=== PATIENT | female | born 1990 | race Caucasian/White ===

== ENCOUNTER → 2018-07-04 | Observation (INO) ==
[2018-07-03 23:13] LABS: Bilirubin,Urine Negative (Negative); Blood,Urine Negative (Negative); Clarity,Urine Clear (Clear); Color,Urine Yellow (Yellow); Glucose,Urine (UA) Normal (Normal); Ketones,Urine Negative (Negative); Leukocyte Esterase,Urine Negative (Negative); Nitrite,Urine Negative (Negative); Protein,Urine Negative (Neg-Trace); Specific Gravity,Urine < 1.005 (1.010-1.025); Urobilinogen,Urine Normal (Normal)
[2018-07-03 23:21] LABS: Amphetamine Screen,Urine Negative ng/mL (Cutoff=1000); Barbiturate Screen,Urine Negative ng/mL (Cutoff=200); Benzodiazepines Screen,Urine Negative ng/mL (Cutoff=200); Cannabinoid Screen,Urine Negative ng/mL (Cutoff = 50); Cocaine Screen,Urine Negative ng/mL (Cutoff= 300); Opiate Screen,Urine Negative ng/mL (Cutoff=300); Phencyclidine Screen,Urine Negative ng/mL (Cutoff=25)
--- NOTE | 2018-07-03 23:33 | OB/GYN Progress Note ---
Date of Encounter: 07/03/18 Time of Encounter: 23:31 - Assessment and Plan (1) 27 weeks gestation of Current Visit: Yes Status: Acute Urine normal NST appropriate for gestation with audible movement Discharge home with labor precaution and what to expect for gestation in relation to movement Follow up in the office with routine care and PRN. (2) Decreased movement during in second trimester, antepartum Current Visit: Yes Status: Acute Qualifiers: Fetus number: single or unspecified fetus Qualified Code(s): O36.8120 - Decreased movements, second trimester, not applicable or unspecified Subjective - Subjective Principal diagnosis: Decreased movement Interval history: Ms Wallace is a at 27 weeks 2 days gestation that presents to triage for decreased movement. She denies headache, visual disturbances, epigastric pain, leaking of fluid, vaginal discharge, and cramping/contractions. This has been effected by obesity, a previous , anemia, and a suicide attempt. She is seen by Dr Doan for her care. Antepartum ROS: no movement normal Objective - Exam FHR comments: FHTs 145-155 moderate variablity. No contractions per toco or palpation Abdomen: Present: soft, gravid. Absent: tenderness Uterus: Present: normal. Absent: firm - Labs Labs: Abnormal lab results Ur Specific [place] < 1.005 (1.010-1.025) L 07/03/18 22:18
== END | disposition home or self-care (01) ==
LOC: 1NENULAB
PROVIDERS: ADMIT Advanced Practice Midwife; ATTEND Advanced Practice Midwife

== ENCOUNTER → 2018-07-19 15:09 | Observation (INO) ==
[2018-07-19 13:40] LABS: Bilirubin,Urine Small (Negative); Blood,Urine Negative (Negative); Clarity,Urine Cloudy (Clear); Color,Urine Dark Yellow (Yellow); Glucose,Urine (UA) Normal (Normal); Ketones,Urine Negative (Negative); Leukocyte Esterase,Urine Small (Negative); Nitrite,Urine Negative (Negative); PH,Urine 6.5 pH Units (5.0-8.0); Protein,Urine 30 mg/dL (Neg-Trace); Specific Gravity,Urine 1.017 (1.010-1.025); Urobilinogen,Urine Normal (Normal)
[2018-07-19 13:42] LABS: Bacteria,Urine Few per hpf (None-Few); RBC,Urine 0-3 per hpf (0-3); Squamous Epithelial Cell,Urine Many per lpf (None-Few)
[2018-07-19 13:45] LABS: Amphetamine Screen,Urine Negative ng/mL (Cutoff=1000); Barbiturate Screen,Urine Negative ng/mL (Cutoff=200); Benzodiazepines Screen,Urine Negative ng/mL (Cutoff=200); Cannabinoid Screen,Urine Negative ng/mL (Cutoff = 50); Cocaine Screen,Urine Negative ng/mL (Cutoff= 300); Opiate Screen,Urine Negative ng/mL (Cutoff=300); Phencyclidine Screen,Urine Negative ng/mL (Cutoff=25)
[2018-07-19 14:00] LABS: Mucus,Urine Few (Few)
--- NOTE | 2018-07-19 15:09 | Discharge Summary ---
Date of Encounter: 07/19/18 Time of Encounter: 15:07 - Discharge Diagnosis (1) 29 weeks gestation of Priority: Primary Status: Acute Comments: Admitted for observation due to lightheadedness and pelvic pressure (2) NST (non-stress test) reactive Priority: Secondary Status: Acute Comments: Normal baseline +10 x 10 accelerations, appropriate for gestational age (3) Lightheaded Priority: Secondary Status: Acute Comments: Blood pressures ranging 80s and 90s over 50s while here. Patient states this has been normal for her recently and has been experiencing lightheadedness for approximately 5 weeks. Her OB care provider is aware of this. Patient states she has been sent home on more than one occasion from work due to coming close to passing out. - Discharge Medications Prescriptions: No Action Terconazole [Terazol 3] 20 gm VG HS #3 cream.appl Home Medications: Terconazole [Terazol 3] 20 gm VG HS #3 cream.appl 07/03/18 [Rx] Allergies/Adverse Reactions: Allergy/AdvReac Type Severity Reaction Status Date / Time No Known Allergies Allergy Verified 07/04/18 00:06 Data Procedures and tests throughout hospitalization: Laboratory Tests 07/19/18 07/19/18 12:55 13:10 Urine Color Dark Yellow Urine Clarity Cloudy A Urine pH 6.5 Ur Specific [place] 1.017 Urine Protein 30 H Urine Glucose (UA) Normal Urine Ketones Negative Urine Blood Negative Urine Nitrite Negative Urine Bilirubin Small H Urine Urobilinogen Normal Ur Leukocyte Esterase Small H Urine Microscopic RBC 0-3 Urine Microscopic WBC 5-15 H Ur Squamous Epith Cells Many H Urine Bacteria Few Hyaline Casts Test Not Performed Urine Mucus Few Urine Yeast Test Not Performed Urine Opiates Screen Negative Ur Barbiturates Screen Negative Ur Phencyclidine Scrn Negative Ur Amphetamines Screen Negative U Benzodiazepines Scrn Negative Urine Cocaine Screen Negative U Marijuana (THC) Screen Negative Ur Drug Screen Interp See Below Labs on day of discharge: Labs from last 24 hours 07/19/18 07/19/18 13:10 12:55 Urine Color Dark Yellow Urine Clarity Cloudy A Urine pH 6.5 Ur Specific [place] 1.017 Urine Protein 30 H Urine Glucose (UA) Normal Urine Ketones Negative Urine Blood Negative Urine Nitrite Negative Urine Bilirubin Small H Urine Urobilinogen Normal Ur Leukocyte Esterase Small H Urine Microscopic RBC 0-3 Urine Microscopic WBC 5-15 H Ur Squamous Epith Cells Many H Urine Bacteria Few Hyaline Casts Test Not Performed Urine Mucus Few Urine Yeast Test Not Performed Urine Opiates Screen Negative Ur Barbiturates Screen Negative Ur Phencyclidine Scrn Negative Ur Amphetamines Screen Negative U Benzodiazepines Scrn Negative Urine Cocaine Screen Negative U Marijuana (THC) Screen Negative Ur Drug Screen Interp See Below Date of admission: 07/19/18 12:18 Primary care physician: Shahram Guerra DO Discharging clinician: Sienna Mcneill Anticipated date of discharge: 07/19/18 - Patient Status Disposition: Home, Self-Care Condition: Good Functional capacity at discharge: independent ambulation Overall status at discharge: patient is progressing back to baseline - Discharge Instructions Follow Up With: Shahram Guerra DO [Primary Care Provider] - Additional Instructions: LABOR AND DELIVERY DISCHARGE INSTRUCTIONS Signs and Symptoms to be Reported to your Doctor Immediately: * Sudden gush, continuous or intermittent lead of fluid from vagina (note the time of gush and color of fluid) * Onset of bright red vaginal bleeding with or without pain (if you had a vaginal exam during this visit you may notice some dark red spotting. This is normal.) * Lower abdominal cramping or backache that is premenstrual-like feeling. * More than 6 contractions in one hour. * Burning during urination, having to urinate more frequently or pain in your mid-back. * A change in the baby's activity. This could be an increase or decrease in activity. * Severe headache which does not go away with tylenol. * Sudden swelling in the face, hands, arms and/or legs. * Upper abdominal pain - sometimes associated with heartburn or nausea and is not relieved by Maalox, Mylanta or Tums. * Dizziness or blurred vision or visual disturbances (seeing stars/lights). * Kick Counts One hour after a meal, lay down on one side in a quiet place. Count the number of dary the baby moves during an hour. If less than 6 movements, notify your physician. Diet: *Force fluids - 8-10 tall glasses of fluid per day. May include popsicles and jello. *Limit caffeine - this includes chocolate, coffee, tea, any soft drink containing such as all cammie, Ciro Yellow and Mountain Dew - Diet and Activity Activity: resume usual activities as tolerated Diet: regular diet Hospital Course [facility] Hospital course: Patient arrived today with complaints of lightheadedness and some pelvic pain. She was scheduled to have an appointment with Dr. Doan this afternoon but after calling with this complaint she was instructed to come to labor and delivery for evaluation. On arrival she does endorse positive movement, denies vaginal bleeding and leakage and contractions. monitor showed a reactive NST for gestational age and occasional uterine activity. Due to rare contractions SVE was completed and found to be closed thick and high. Blood pressures while the patient was here ranged from 80s and 90s over 50s. She states she has been having this lightheadedness for over a month and her OB provider is aware. OB issues were ruled out in this visit. Patient had a 28 week labs drawn 1 week ago and her hemoglobin at that time was 10.4 and she was started on iron. Patient was instructed that she could be evaluated in the emergency room for complaints of lightheadedness if she chooses. She does have an appointment with Dr. Doan on 07/28/2018 for her routine visit and is to call if she has any concerns prior to that visit. Time Attestation: Total time spent providing and/or coordinating discharge services: Time Spent: Less than 30 minutes Exam - Constitutional General appearance IM: A&O X 3, pleasant, no acute distress, answers questions appropriately - Respiratory Respiratory exam: Present: CTAB - Cardiovascular Cardiovascular exam IM: Present: RRR, +S1, +S2 - GI/Abdominal GI/Abdominal exam IM: normal bowel sounds, soft - Rectal Rectal exam: deferred - External exam: normal external exam - Extremities Exam Extremities exam IM: Present: full ROM, normal capillary refill, normal inspection - Neurological Exam Neurological exam: alert, normal gait, oriented X3 - VTE Reasons for not Prescribing Prophylaxis: Treatment not Indicated - Low risk for VTE
== END | disposition home or self-care (01) ==
LOC: 1NENULAB
PROVIDERS: ADMIT Registered Nurse; ATTEND Registered Nurse

== ENCOUNTER → 2018-07-22 01:13 | Observation (INO) ==
[2018-07-21 23:22] LABS: Bilirubin,Urine Negative (Negative); Blood,Urine Negative (Negative); Clarity,Urine Cloudy (Clear); Color,Urine Yellow (Yellow); Glucose,Urine (UA) Normal (Normal); Ketones,Urine Negative (Negative); Leukocyte Esterase,Urine Negative (Negative); Nitrite,Urine Negative (Negative); PH,Urine 6.5 pH Units (5.0-8.0); Protein,Urine Trace mg/dL (Neg-Trace); Specific Gravity,Urine 1.018 (1.010-1.025); Urobilinogen,Urine Normal (Normal)
[2018-07-21 23:25] LABS: Bacteria,Urine Few per hpf (None-Few); Hyaline Casts,Urine None Seen per lpf (None-Few); RBC,Urine 0-3 per hpf (0-3); Squamous Epithelial Cell,Urine Many per lpf (None-Few)
[2018-07-21 23:33] LABS: Amphetamine Screen,Urine Negative ng/mL (Cutoff=1000); Barbiturate Screen,Urine Negative ng/mL (Cutoff=200); Benzodiazepines Screen,Urine Negative ng/mL (Cutoff=200); Cannabinoid Screen,Urine Negative ng/mL (Cutoff = 50); Cocaine Screen,Urine Negative ng/mL (Cutoff= 300); Opiate Screen,Urine Negative ng/mL (Cutoff=300); Phencyclidine Screen,Urine Negative ng/mL (Cutoff=25)
[2018-07-21 23:46] LABS: Calcium Oxalate Crystals,Urine Present
--- NOTE | 2018-07-22 00:12 | OB/GYN Progress Note ---
Date of Encounter: 07/22/18 Time of Encounter: 00:08 - Assessment and Plan (1) 30 weeks gestation of Current Visit: Yes Status: Acute (2) Abdominal pain affecting Current Visit: Yes Status: Acute Pt reports sharp, constant pain throughout upper and middle abdomen bilaterally. No ill contacts. Pain started after taking iron supplement. Suspect pain is secondary to GI upset from iron. She reports pain has improved since arriving to triage. She reports nausea has resolved. No obstetric complaints. Will get CBC, hepatic panel, amylase and lipase. GI cocktail now. If labs WNL and sx continue to improve, will discharge home with precautions. (3) NST (non-stress test) reactive Current Visit: No Status: Acute Subjective - Subjective Interval history: 27 year-old presenting at 30 weeks gestation with c/o diffuse abdominal pain. She reports associated nausea. Her symptoms started at 9pm when she took her iron supplement. She reports her pain is sharp, constant, and severe in her upper and middle abdomen. She denies any diarrhea or constipation. No urinary sx. No cramping, leaking or bleeding. Good FM. She does have a significant history of previous delivery, suicide attempt by OD approx 6 weeks ago, marijuana use, iron deficiency anemia and obesity. Antepartum ROS: movement normal, no loss of fluid, no vaginal bleeding, no contractions Objective - Vital Signs Vital Signs: Intake and Output 07/21/18 07/21/18 07/22/18 15:59 23:59 07:59 Other: Weight 75.9 kg - Exam FHR: category 1 FHR comments: 145 BPM, reactive NST Auscultation: bilateral: normal Abdomen: Present: soft, gravid. Absent: tenderness Uterus: Present: normal. Absent: tenderness Cervical dilation: closed/thick/high Comments: no CVAT - Labs Labs: Abnormal lab results Cloudy (Clear) A 07/21/18 23:10 5-15 per hpf (0-3) H 07/21/18 23:10 Ur Squamous Epith Cells Many per lpf (None-Few) H 07/21/18 23:10
[2018-07-22 00:29] LABS: Basophils % 0.2 %; Eosinophils # 0.1 K/mcL (0.0-0.6); Eosinophils % 0.6 %; Hematocrit 31.3 % (35.3-44.9); Hemoglobin 10.6 g/dL (11.5-15.4); Immature Granulocytes % 0.4 % (0-4); Lymphocytes # 1.6 K/mcL (0.6-4.6); Lymphocytes % 13.4 %; Mean Corpuscular HGB Conc 33.9 g/dL (31.6-35.5); Mean Corpuscular Hemoglobin 29.7 pg (28.0-33.3); Mean Corpuscular Volume 87.7 fL (83.0-100.0); Mean Platelet Volume 9.7 fL (9.4-12.4); Monocytes # 0.4 K/mcL (0.0-1.3); Monocytes % 3.5 %; Neutrophils # 9.6 K/mcL (1.6-8.9); Platelet Count 226 K/mcL (140-400); Red Blood Count 3.57 M/mcL (3.82-4.97); Red Cell Distribution Width 14.1 % (11.5-14.5); Segmented Neutrophils % 81.9 %
[2018-07-22 00:45] LABS: Alanine Aminotransferase 10 Units/L (7-52); Albumin 3.3 g/dL (3.5-5.7); Albumin/Globulin Ratio 1.1 (1.1-2.2); Alkaline Phosphatase 67 Units/L (34-104); Amylase 62 Units/L (29-103); Aspartate Amino Transferase 16 Units/L (13-39); BUN/Creatinine Ratio 13 (6-26); Bilirubin,Direct 0.2 mg/dL (0.0-0.2); Bilirubin,Indirect 0.4 mg/dL (0.0-1.2); Bilirubin,Total 0.6 mg/dL (0.3-1.0); Blood Urea Nitrogen 9 mg/dL (6-20); Calcium 8.8 mg/dL (8.6-10.3); Carbon Dioxide 26 mEq/L (23-29); Chloride 102 mEq/L (98-107); Globulin 2.9 g/dL (2.4-3.5); Glucose 88 mg/dL (70-105); Lipase 35 Units/L (11-82); Osmolality,Calculated 282 (280-300); Sodium 137 mEq/L (136-145); Total Protein 6.2 g/dL (6.4-8.9); eGFR For Non-African Americans > 60 (> 60)
[~2018-07-22 01:13] MED LIST: GI Cocktail 40 ML EACH PO ONE
== END | disposition home or self-care (01) ==
LOC: 1NENULAB
PROVIDERS: ADMIT Registered Nurse; ATTEND Registered Nurse

== ENCOUNTER 2018-09-26 05:09 | Inpatient (IN) ==
[~2018-09-26 05:09] MED LIST changes: +CeFAZolin Premix DUPLEX 2,000 MG/50 ML BAG IVPB ONE; +D5% in Lactated Ringers 1,000 ML IVC SCH; +Famotidine 20 MG/2 ML VIAL IVP ONE; -GI Cocktail 40 ML EACH PO ONE; +Metoclopramide 10 MG/2 ML VIAL IVP ONE; +Ringers Solution, Lactated 1,000 ML IVC ONE
--- NOTE | 2018-09-26 05:21 | OB/GYN History & Physical ---
Date of Encounter: 09/26/18 Time of Encounter: 05:13 Assessment and Plan (1) 39 weeks gestation of Current visit: Yes Status: Acute Continuous EFM and toco prior to section (2) Depression affecting Current visit: Yes Status: Acute Continue 40 mg of Prozac (3) Iron deficiency anemia Current visit: No Status: Acute We will continue oral iron therapy, possible iron infusion Qualifiers: Qualified Code(s): D50.8 - Other iron deficiency anemias (4) Previous section Current visit: Yes Status: Acute Plan for repeat section as patient is in labor. 2 g of Ancef and 500 mg of azithromycin ordered for preoperative antibiotics. (5) Sterilization Current visit: Yes Status: Acute We will perform bilateral tubal ligation during repeat section. Tubal consent signed on 07/12/2018 History of Present Illness Chief complaint: Ctxs HPI: Ms. Wallace is a 28 year old female @ 39.3wga. She presents to labor and delivery complaining of contractions and a single gush of blood at 9 PM last night. She has made change from 1 cm to 2 cm and continues to be uncomfortable with her regular contractions approximately every 2-3 minutes despite 1 L IV fluid bolus. This is complicated by a suicide attempt in May and anemia status post 1 iron infusion. +FM. Denies VB, LOF, abnml vag discharge, ctxs/cramping, dysuria or other complaints. Past Med Surg Social Fam HX - Past Medical History Medical history: no medical history Additional medical history: SEVERE DEPRESSION Psychiatric history: depression, prior suicide attempt - Past Surgical History Surgical History: - Social History Smoking Status: Never smoker Smokeless Tobacco Status: No Alcohol use: none Drug use: none - Family History Mother Living Status: Still Living Hx Family Cardiac Disorders: No Hx Family Respiratory Disorders: No Hx Family Cancer: No Hx Family GI Disorders: No Hx Family Endocrine Disorder: No Hx Family Neuromuscular Disorders: No Hx Family Neurologic Disorders: No Hx Family HEENT Disorders: No Hx Family Autoimmune Disorders: No Obstetrical History - Pregnancies : 2 Para: 1 Term: 1 : 0 Ab's: 0 Livin - History/Complications History/Complications: complicated by suicide attempts and iron deficiency anemia Medications and Allergies Prozac 40 mg PO DAILY 07/21/18 [History] Cetirizine HCl [Zyrtec] 10 mg PO DAILY 08/16/18 [History] Allergy/AdvReac Type Severity Reaction Status Date / Time No Known Allergies Allergy Verified 08/25/18 13:08 Review of System OB All systems PM: reviewed and no additional remarkable complaints except as stated (All other systems are negative outside of the history of present illness.) Exam - Constitutional Constitutional: well developed, well nourished, no acute distress, average body habitus - HEENT HEENT: Normocephaly, Mucus Membranes Moist - Neck Neck exam: supple - Abdomen Abdomen: Present: gravid, non tender - Cervix Dilation: 2 Results All other labs normal. - VTE Reasons for not Prescribing Prophylaxis: Treatment not Indicated - Low risk for VTE
[2018-09-26 05:34] LABS: Basophils % 0.1 %; Hematocrit 34.9 % (35.3-44.9); Hemoglobin 11.7 g/dL (11.5-15.4); Immature Granulocytes % 0.3 % (0-4); Lymphocytes # 1.6 K/mcL (0.6-4.6); Lymphocytes % 13.3 %; Mean Corpuscular HGB Conc 33.5 g/dL (31.6-35.5); Mean Corpuscular Hemoglobin 29.6 pg (28.0-33.3); Mean Corpuscular Volume 88.4 fL (83.0-100.0); Mean Platelet Volume 11.1 fL (9.4-12.4); Monocytes # 0.5 K/mcL (0.0-1.3); Monocytes % 3.9 %; Neutrophils # 9.9 K/mcL (1.6-8.9); Platelet Count 199 K/mcL (140-400); Red Blood Count 3.95 M/mcL (3.82-4.97); Red Cell Distribution Width 14.9 % (11.5-14.5); Segmented Neutrophils % 82.4 %; White Blood Count 12.1 K/mcL (4.3-11.1)
[2018-09-26] MEDS ORDERED: *HR* Morphine Sulfate/PF 10 MG/10 ML AMPUL ONE (05:38)
[2018-09-26] MEDS ORDERED: *HR* FentaNYL (PF) 100 MCG/2 ML VIAL ONE (05:38)
[2018-09-26] MEDS ORDERED: *HR* Oxytocin 10 UNIT/ML VIAL IM ONE ×2 (05:39→06:38)
[2018-09-26] MEDS ORDERED: Azithromycin 500 MG in D5% in Water 250 ML IVPB ONE (05:45)
--- NOTE | 2018-09-26 05:56 | Anesthesia Evaluation PreOp ---
Date of Encounter: 09/26/18 Time of Encounter: 05:54 - Past History Planned Operation: Repeat Cardiac History: Other (hypotension with this ) Pulmonary History: Denies Any Significant HX CLINICAL DOCUMENTATION CLERK History: Denies Any Significant HX Other Medical History: Other (severe depression; suicide attempt 05/2018) Anesthesia History: No Prior Anesthetic Complications (JOB x 1--no issues; never had GA; denies family h/o GA complications) : Yes Alcohol Use: none Drug use: none Medications and Allergies Prozac 40 mg PO DAILY 07/21/18 [History] Cetirizine HCl [Zyrtec] 10 mg PO DAILY 08/16/18 [History] Allergy/AdvReac Type Severity Reaction Status Date / Time No Known Allergies Allergy Verified 08/25/18 13:08 - Meds/Allergy Pre-op Review Medications Reviewed: Yes Allergies Reviewed: Yes Beta Blockers on Current Med List: No Anesthesia Results - Labs 09/26/18 05:15 Anesthesia Exam 107/74, HR 70 O2 Sat Height 1.42 m Weight 76.8 kg NPO (# of Hours): >8hrs Pain Scale: 10 Pain Scale Used: Anna-Nichols (Faces) - HEENT Pupil (Motor): Pupils equal Mallampati: II Teeth: Normal Oral Opening: Greater than 3 - CLINICAL DOCUMENTATION CLERK LOC: Oriented CLINICAL DOCUMENTATION CLERK Motor: Normal RUE, Normal LUE, Normal RLE, Normal LLE, Normal Face CLINICAL DOCUMENTATION CLERK Sensory: Normal: RUE, LUE, RLE, LLE, Face - Cardiac Rhythm: Regular Murmur: None - Pulmonary Breath Sounds: bilateral Clear Respiratory Effort: Symmetrical Anesthesia Assess/Plan ASA Score: 2 Level of consciousness: Cooperative, Oriented, Restless Anesthetic Plan: Spinal Autologous Blood: No Monitoring Plan: Standard Monitors Recovery Plan: PACU
[2018-09-26 05:57] LABS: Amphetamine Screen,Urine Negative ng/mL (Cutoff=1000); Barbiturate Screen,Urine Negative ng/mL (Cutoff=200); Benzodiazepines Screen,Urine Negative ng/mL (Cutoff=200); Cannabinoid Screen,Urine Negative ng/mL (Cutoff = 50); Cocaine Screen,Urine Negative ng/mL (Cutoff= 300); Opiate Screen,Urine Negative ng/mL (Cutoff=300); Phencyclidine Screen,Urine Negative ng/mL (Cutoff=25)
--- NOTE | 2018-09-26 06:35 | Anesthesia Procedures ---
Date of Encounter: 09/26/18 Time of Encounter: 06:08 Procedures: Anesthesia - Epidural/Spinal Patient ID/Chart reviewed: Yes Patient examined: Yes OB Eval: Gestational age: 39 weeks 3 days OB Eval: : 2 OB Eval: Hx Para: 1 OB Eval: Contractions: Non-stressed pattern Consent Obtained: Yes Supplemental Oxygen: None/Room Air Site Prep: Aseptic Technique, Sterile prep and drape, 0.5% Chlorhexidine/Alcohol Patient position: upright Local Anesthetic: Lidocaine 1% Amount of Local Anesthetic used: 3 Interspace Used: L3-L4 Blood: No CSF: Yes Paresthesia: No Spinal Needle Gauge: 25 (3.5" pencan needle) Spinal Dose: see anesthesia record Procedure: successful on 1st attempt; patient tolerated procedure well Vitals + FHT's: see anesthesia record
[2018-09-26] MEDS ORDERED: Ringers Solution, Lactated 1,000 ML ONE ×2 (06:38→10:46)
[2018-09-26] MEDS ORDERED: Ketorolac 30 MG/ML VIAL IVP STA (08:09)
--- NOTE | 2018-09-26 08:31 | OB/GYN Procedure Note ---
Section - Date of procedure: 09/26/18 Preop diagnosis: desires repeat (Declined TOLAC), desires sterilization Post-op diagnosis: same Procedure: section, repeat low transverse, other (Bilateral salpingectomy) Surgeon: Sally Hernandez Blood Loss: 800 Was there an painter assistant present: Yes Production Estimator: Angela Bush Anesthesiologist: Brian Adams Cotton Wringer: Brandyn Avery Anesthesia Type: Spinal section complications: none Disposition: L&D Recovery Room Specimens: Placenta, Cord segment, Cord blood, Cord gasses, Right tube segment (Right fallopian tube, not segment), Left tube segment (Left fallopian tube, not segment) - (s) Infant A Delivery Date: 09/26/18 Infant Delivery Time: 06:25 Presentation: vertex Gender: Male Viability: Viable Pounds: 7 Ounces: 10 Gram Weight: 3.465 kg at 1 minute: 8 at 5 minutes: 9 Shoulder Dystocia: not encountered Specimens collected: cord blood, venous cord gases, arterial cord gases Placenta: spontaneous Cord: nuchal cord (x 2), nuchal reduced (After delivery of head) - Narrative Narrative: Operation Performed Repeat Low Transverse Section with bilateral salpingectomy Indication for Surgery 28yo at 39.3 wga presented to labor and delivery complaining of c ontractions and passing a large quantity of blood times once at 9 PM, vaginal bleeding now resolved. She was esvin every 2-3 minutes and made cervical change from 1 cm to 2 cm. She was originally scheduled for a repeat section and bilateral partial salpingectomy at 40 weeks and 0 days. She was in labor, declined TOLAC and desired permanent sterilization the decision was made to proceed with a repeat section. The patient was informed of the risks and benefits of a section with bilateral salpingectomy. Risks included but were not limited to bleeding, infection, injury to the presenting part of the fetus, injury to the bladder, bowel, ureters and the surrounding neurovasular bundles. The patient expressed understanding of the risks involved. All questions were answered and the patient consented to the procedure. Preoperative Diagnosis 1. IUP @ 39.3 wga 2. Previous section x1, declined TOLAC and in labor 3. Undesired fertility Postoperative Diagnosis Same Surgeon Sally Brar D.O. Production Estimator(s) Angela Bush Anesthesia Spinal with Duramorph Estimated Blood Loss 800 mL Urine Output Adequate amount of clear yellow urine IV Fluids 2400 mL crystalloid Specimen(s) Placenta, Cord gasses, Cord blood Findings Live male , weighing 7 pounds and 10 ounces, with APGARS of 8/9. Normal appearing uterus, tubes and ovaries bilaterally. Complications None Technique The patient was taken to the operating room where a timeout was performed to confirm correct patient and correct procedure. Preoperative antibiotics were administered and spinal anesthesia was found to be adequate. As she laid supine, following the spinal, the previously observed heart rate in the 130s to 140s dropped into the 80s to 90s. The decision was made to proceed with a Betadine abdominal prep instead of a ChloraPrep abdominal prep. This was followed by draping in the usual sterile fashion for a section with a leftward tilt of the hips. A Pfannenstiel skin incision was made with a scalpel. Dissection to the fascia was carried out using blunt and sharp dissection, followed by the Bovie electrocautery for hemostasis. The fascia was incised with a scalpel and the incision was extended laterally using curved Mar scissors. Last clamps were used to tent up the superior edge of the fascia and the underlying rectus muscles were dissected off using blunt and sharp dissection. Attention was then turned to the inferior fascial edge and dissection carried out in a similar manner. The rectus muscles were then in the midline and the peritoneum was entered using blunt and sharp dissection. The peritoneum was grasped with hemostats at the superior aspect, care was taken to avoid the bladder, and incised with Metzenbaum scissors. The peritoneal incision was extended using light traction. A bladder blade was inserted. The lower uterine segment was incised with a scalpel in transverse fashion. The hysterotomy was extended laterally with blunt traction in cephalad and caudad directions. A large amount of meconium-stained fluid was present upon amniotomy. The fetus was in vertex presentation. The surgeon's hand was placed under the infant's head and the infant delivered through the hysterotomy with the assistance of fundal pressure. A nuchal cord 2 was reduced, after delivery of the head, followed by the delivery of the 's body. The cord was clamped 2 and cut. The infant was safely transferred to the warmer for further care by the domain architect. Cord blood and gases were obtained for routine testing. The placenta, with three-vessel cord, was expressed intact. The uterus was removed from the abdomen and wrapped in a wet blue towel for repair and bilateral salpingectomy. The uterus was wiped clean of clots and debris before closing the hysterotomy with a running locked 0 Vicryl suture. A non-hemostatic area in the midline of the hysterotomy was reinforced with one [id number] suture. Excellent hemostasis obtained. Attention was then turned to the right adnexa in preparation for salpingectomy. Starting at the fimbriated end, and close to the fallopian tube, the right mesosalpinx was grasped with a hemostat, coagulated with the Bovie and cut with Metzenbaum scissors in a repetitive manner until the cornua was reached. At the cornua, the right fallopian tube was fully cauterized, transected and the right tube removed in its entirety. Hemostasis was obtained on the right side before proceeding, in similar fashion, to the left side to remove the left fallopian tube. Hemostasis was also obtained on the left side following removal of the fallopian tube. The uterus was then replaced into the abdomen and irrigation performed. A few areas along the hysterotomy repair were found to use so Ulysses was applied. Excellent hemostasis noted following application of Ulysses. The fascia was closed using Stratafix suture in a running nonlocked fashion. The subcutaneous tissue was closed with 4-0 Vicryl suture in a running nonlocked fashion. The skin was closed with a subcuticular stitch of 4-0 Vicryl. The patient tolerated the procedure well. At the end of the procedure, all needle sponge and instrument counts were noted to be correct 2. The patient tolerated the procedure well and was transferred to the recovery room in stable condition.
[2018-09-26] MEDS ORDERED: Oxytocin 20 units/ LR 1000 mL 20 UNIT/1,000 ML BAG IVC ONE (09:15)
[2018-09-26] MEDS ORDERED: Ringers Solution, Lactated 500 ML IVC ONE (09:34)
[2018-09-26] MEDS ORDERED: Oxytocin 20 units/ LR 1000 mL 20 UNIT/1,000 ML BAG IVC SCH (10:40)
[2018-09-26] MEDS ORDERED: Measles/Mumps/Rubella Vacc 0.5 ML VIAL SQ ONE (10:40)
[2018-09-26] MEDS ORDERED: Rho Immune Globulin 1,500 UNIT SYRINGE IM ONE (10:40)
[2018-09-26] MEDS ORDERED: Ondansetron 4 MG/2 ML VIAL IVP PRN (10:40)
[2018-09-26] MEDS ORDERED: Metoclopramide 10 MG/2 ML VIAL IVP PRN (10:40)
[2018-09-26] MEDS ORDERED: Sennosides 8.6 MG TABLET PO PRN (10:40)
[2018-09-26] MEDS: Ketorolac 30 MG/ML VIAL IVP SCH ×2 (15:55→20:48)
[2018-09-26] MEDS: Simethicone 80 MG TAB.CHEW PO SCH ×2 (16:00→20:52)
[2018-09-26] MEDS: Acetaminophen 325 MG TABLET PO SCH ×3 (16:01→20:47)
--- NOTE | 2018-09-26 17:33 | Anesthesia Evaluation Post Op ---
Date of Encounter: 09/26/18 Time of Encounter: 17:32 - Vital Signs Vital Signs: Vital Signs/O2 Sat, Most Current Temp Pulse Resp BP Pulse Ox 97.6 F 62 16 103/69 100 09/26/18 16:00 09/26/18 16:00 09/26/18 16:00 09/26/18 16:00 09/26/18 16:00 - Lungs Lungs: Clear Ascult./Percussion - Airway Airway: Non-obstructed - Cardiovascular Regular Rate - Mental Status Mental Status: Alert & Oriented, Answers Appropriately - Pain Pain Scale: 4 - Nausea Vomiting Nausea Vomiting: Not Present - Hydration Hydration: Tolerates oral liquids, Smith catheter - Discharge PostOp Status: Transfer Patient to floor
[2018-09-27] MEDS: Ibuprofen 600 MG TABLET PO SCH ×3 (05:13→19:39)
[2018-09-27] MEDS: Acetaminophen 325 MG TABLET PO SCH ×3 (05:13→19:41)
[2018-09-27 05:43] LABS: Basophils % 0.1 %; Eosinophils % 0.2 %; Hematocrit 29.6 % (35.3-44.9); Immature Granulocytes % 0.3 % (0-4); Lymphocytes # 1.8 K/mcL (0.6-4.6); Mean Corpuscular HGB Conc 33.1 g/dL (31.6-35.5); Mean Corpuscular Hemoglobin 29.9 pg (28.0-33.3); Mean Corpuscular Volume 90.2 fL (83.0-100.0); Mean Platelet Volume 10.7 fL (9.4-12.4); Monocytes # 0.4 K/mcL (0.0-1.3); Neutrophils # 6.5 K/mcL (1.6-8.9); Platelet Count 147 K/mcL (140-400); Red Blood Count 3.28 M/mcL (3.82-4.97); Red Cell Distribution Width 15.1 % (11.5-14.5); Segmented Neutrophils % 74.4 %; White Blood Count 8.8 K/mcL (4.3-11.1)
[2018-09-27 05:46] LABS: Hemoglobin 9.8 g/dL (11.5-15.4)
--- NOTE | 2018-09-27 09:19 | OB/GYN Progress Note ---
Date of Encounter: 09/27/18 Time of Encounter: 09:17 - Assessment and Plan (1) Status post delivery Current Visit: Yes Status: Acute Patient meeting day one milestones. Pain well-controlled with prescribed medications. Voiding without difficulty, tolerating regular diet, bleeding light. No bowel movement yet. Anticipate discharge tomorrow (2) Tubal ligation status Current Visit: Yes Status: Acute Patient had tubal ligation at time of delivery (3) Breast feeding status of mother Current Visit: Yes Status: Acute support as needed. We will provide breast pump prescription on discharge if needed (4) Acute blood loss anemia Current Visit: Yes Status: Acute Continue daily iron. Patient is asymptomatic with a hemoglobin of 9.8 Subjective - Subjective Principal diagnosis: Day one s/p with tubal Interval history: Date of procedure: 09/26/18 Preop diagnosis: desires repeat (Declined TOLAC), desires sterilization Post-op diagnosis: same Procedure: section, repeat low transverse, other (Bilateral salpingectomy) Surgeon: Sally Hernandez Blood Loss: 800 Was there an information services assistant present: Yes Industrial Maintenance Technician: Angela Bush Anesthesiologist: Brian Adams Program Schedule Clerk: Brandyn Avery Anesthesia Type: Spinal section complications: none Disposition: L&D Recovery Room Specimens: Placenta, Cord segment, Cord blood, Cord gasses, Right tube segment (Right fallopian tube, not segment), Left tube segment (Left fallopian tube, not segment) - (s) Infant A Infant Delivery Date: 09/26/18 Infant Delivery Time: 06:25 Presentation: vertex Gender: Male Viability: Viable Pounds: 7 Ounces: 10 Gram Weight: 3.465 kg at 1 minute: 8 at 5 minutes: 9 Shoulder Dystocia: not encountered Specimens collected: cord blood, venous cord gases, arterial cord gases Placenta: spontaneous Cord: nuchal cord (x 2), nuchal reduced (After delivery of head) - Narrative Narrative: Operation Performed Repeat Low Transverse Section with bilateral salpingectomy Indication for Surgery 28yo at 39.3 wga presented to labor and delivery complaining of contractions and passing a large quantity of blood times once at 9 PM, vaginal bleeding now resolved. She was esvin every 2-3 minutes and made cervical change from 1 cm to 2 cm. She was originally scheduled for a repeat section and bilateral partial salpingectomy at 40 weeks and 0 days. She was in labor, declined TOLAC and desired permanent sterilization the decision was made to proceed with a repeat section. The patient was informed of the risks and benefits of a section with bilateral salpingectomy. Risks included but were not limited to bleeding, infection, injury to the presenting part of the fetus, injury to the bladder, bowel, ureters and the surrounding neurovasular bundles. The patient expressed understanding of the risks involved. All questions were answered and the patient consented to the procedure. Preoperative Diagnosis 1. IUP @ 39.3 wga 2. Previous section x1, declined TOLAC and in labor 3. Undesired fertility Postoperative Diagnosis Same Surgeon Sally Brar D.O. Industrial Maintenance Technician(s) Angela Bush Anesthesia Spinal with Duramorph Estimated Blood Loss 800 mL Urine Output Adequate amount of clear yellow urine IV Fluids 2400 mL crystalloid Specimen(s) Placenta, Cord gasses, Cord blood Findings Live male , weighing 7 pounds and 10 ounces, with APGARS of 8/9. Normal a ppearing uterus, tubes and ovaries bilaterally. Complications None Technique The patient was taken to the operating room where a timeout was performed to confirm correct patient and correct procedure. Preoperative antibiotics were administered and spinal anesthesia was found to be adequate. As she laid supine, following the spinal, the previously observed heart rate in the 130s to 140s dropped into the 80s to 90s. The decision was made to proceed with a Betadine abdominal prep instead of a ChloraPrep abdominal prep. This was followed by draping in the usual sterile fashion for a section with a leftward tilt of the hips. A Pfannenstiel skin incision was made with a scalpel. Dissection to the fascia was carried out using blunt and sharp dissection, followed by the Bovie electrocautery for hemostasis. The fascia was incised with a scalpel and the incision was extended laterally using curved Mar scissors. Last clamps were used to tent up the superior edge of the fascia and the underlying rectus muscles were dissected off using blunt and sharp dissection. Attention was then turned to the inferior fascial edge and dissection carried out in a similar manner. The rectus muscles were then in the midline and the peritoneum was entered using blunt and sharp dissection. The peritoneum was grasped with hemostats at the superior aspect, care was taken to avoid the bladder, and incised with Metzenbaum scissors. The peritoneal incision was extended using light traction. A bladder blade was inserted. The lower uterine segment was incised with a scalpel in transverse fashion. The hysterotomy was extended laterally with blunt traction in cephalad and caudad directions. A large amount of meconium-stained fluid was present upon amniotomy. The fetus was in vertex presentation. The surgeon's hand was placed under the infant's head and the delivered through the hysterotomy with the assistance of fundal pressure. A nuchal cord 2 was reduced, after delivery of the head, followed by the delivery of the 's body. The cord was clamped 2 and cut. The infant was safely transferred to the warmer for further care by the salesperson men's hats. Cord blood and gases were obtained for routine testing. The placenta, with three-vessel cord, was expressed intact. The uterus was removed from the abdomen and wrapped in a wet blue towel for repair and bilateral salpingectomy. The uterus was wiped clean of clots and debris before closing the hysterotomy with a running locked 0 Vicryl suture. A non-hemostatic area in the midline of the hysterotomy was reinforced with one [id number] suture. Excellent hemostasis obtained. Attention was then turned to the right adnexa in preparation for salpingectomy. Starting at the fimbriated end, and close to the fallopian tube, the right mesosalpinx was grasped with a hemostat, coagulated with the Bovie and cut with Metzenbaum scissors in a repetitive manner until the cornua was reached. At the cornua, the right fallopian tube was fully cauterized, transected and the right tube removed in its entirety. Hemostasis was obtained on the right side before proceeding, in similar fashion, to the left side to remove the left fallopian tube. Hemostasis was also obtained on the left side following removal of the fallopian tube. The uterus was then replaced into the abdomen and irrigation performed. A few areas along the hysterotomy repair were found to use so Ulysses was applied. Excellent hemostasis noted following application of Ulysses. The fascia was closed using Stratafix suture in a running nonlocked fashion. The subcutaneous tissue was closed with 4-0 Vicryl suture in a running nonlocked fas hion. The skin was closed with a subcuticular stitch of 4-0 Vicryl. The patient tolerated the procedure well. At the end of the procedure, all needle sponge and instrument counts were noted to be correct 2. The patient tolerated the procedure well and was transferred to the recovery room in stable condition. Patient reports: appetite normal, voiding normally, pain well controlled, ambulating normally [place]: doing well, nursing well Objective - Vital Signs Latest vital signs: Vital Signs Temp Pulse Resp BP Pulse Ox 09/27/18 08:38 97.9 F 57 16 102/67 09/27/18 05:20 97.7 F 55 15 102/70 98 09/26/18 23:18 98.1 F 61 14 99/63 95 09/26/18 20:43 98.6 F 60 15 97/63 09/26/18 16:00 97.6 F 62 16 103/69 100 09/26/18 13:00 97.7 F 59 16 108/75 97 09/26/18 12:00 97.1 F L 59 18 110/74 96 09/26/18 11:37 97.7 F 56 16 106/65 97 09/26/18 10:30 98 F 56 18 110/73 96 09/26/18 10:03 98.2 F 64 14 121/85 98 Intake and Output 09/26/18 09/27/18 09/27/18 23:59 07:59 15:59 Intake Total 250 / 250 700 / 700 Output Total 650 / 790 800 / 800 Balance -400 / -540 -800 / -100 700 / -100 Intake: Oral 250 / 250 700 / 700 Output: Urine 400 / 400 800 / 800 Catheter 250 / 250 Urethral (Smith) 250 / 250 - Exam Lungs: bilateral: normal Chest: Normal S1, Normal S2 Extremities: Present: normal Abdomen: Present: normal appearance, soft. Absent: distention, tenderness Incision: Present: dressed (surgical dressing) Uterus: Present: normal, firm Fundal Height: 0 (@u) - Labs Labs: Laboratory Results - last 24 hr 09/26/18 09/27/18 07:41 05:03 WBC 8.8 RBC 3.28 L Hgb 9.8 L D Hct 29.6 L MCV 90.2 MCH 29.9 MCHC 33.1 RDW 15.1 H Plt Count 147 MPV 10.7 Immature Gran % 0.3 Seg Neutrophils % 74.4 Lymphocytes % 21.0 Monocytes % 4.0 Eosinophils % 0.2 Basophils % 0.1 Neutrophils # 6.5 Lymphocytes # 1.8 Monocytes # 0.4 Eosinophils # 0.0 Basophils # 0.0 Screen NEGATIVE Baby's Blood Type A RH POSITIVE Mother's Blood Type A RH NEGATIVE Rhogam Indicated YES Rhogam Req for Mother 1
[2018-09-27] MEDS: FLUoxetine 20 MG CAPSULE PO SCH (09:20)
[2018-09-27] MEDS: Simethicone 80 MG TAB.CHEW PO SCH ×3 (09:20→22:54)
[2018-09-27] MEDS: Prenatal Vit/FA 1 EACH TABLET PO SCH (09:20)
[2018-09-27] MEDS: *HR* OxyCODONE/APAP 5/325 TABLET PO PRN ×2 (09:25→15:08)
[2018-09-28] MEDS: Acetaminophen 325 MG TABLET PO SCH ×2 (01:02→09:27)
[2018-09-28] MEDS: Ibuprofen 600 MG TABLET PO SCH (01:03)
[2018-09-28 08:13] VITALS: BP 106/67
--- NOTE | 2018-09-28 09:13 | Discharge Summary ---
Date of Encounter: 09/28/18 Time of Encounter: 09:11 - Discharge Diagnosis (1) Breast feeding status of mother Priority: Secondary Status: Acute Comments: support prn (2) Status post delivery Priority: Primary Status: Acute Comments: Continue routine postop/ care discharge home today follow up with Dr. Brar in 2 weeks for incision check Follow up with Dr. Doan in 6 weeks for PP visit (3) Tubal ligation status Priority: Secondary Status: Acute - Discharge Medications Prescriptions: New Breast Pump [BREAST PUMP] 1 each .ROUTE AD #1 each Docusate [Colace] 100 mg PO BID #30 capsule Ferrous Sulfate 325 mg PO DAILY #30 tablet Ibuprofen [Motrin] 600 mg PO Q6HR #60 tablet OxyCODONE/APAP 5/325 [Percocet 5/325 MG] 1 each PO Q6HR PRN 5 Days #20 tablet PRN Reason: Breakthrough Pain Discontinued Prozac 40 mg PO DAILY Cetirizine HCl [Zyrtec] 10 mg PO DAILY Home Medications: Breast Pump [BREAST PUMP] 1 each .ROUTE AD #1 each 09/27/18 [Rx] Docusate [Colace] 100 mg PO BID #30 capsule 09/28/18 [Rx] Ferrous Sulfate 325 mg PO DAILY #30 tablet 09/28/18 [Rx] Ibuprofen [Motrin] 600 mg PO Q6HR #60 tablet 09/28/18 [Rx] OxyCODONE/APAP 5/325 [Percocet 5/325 MG] 1 each PO Q6HR PRN 5 Days #20 tablet 09/28/18 [Rx] Allergies/Adverse Reactions: Allergy/AdvReac Type Severity Reaction Status Date / Time No Known Allergies Allergy Verified 08/25/18 13:08 Data Procedures and tests throughout hospitalization: Laboratory Tests 09/26/18 09/26/18 09/26/18 05:15 05:15 07:41 WBC 12.1 H RBC 3.95 Hgb 11.7 Hct 34.9 L MCV 88.4 MCH 29.6 MCHC 33.5 RDW 14.9 H Plt Count 199 MPV 11.1 Immature Gran % 0.3 Seg Neutrophils % 82.4 Lymphocytes % 13.3 Monocytes % 3.9 Eosinophils % 0.0 Basophils % 0.1 Neutrophils # 9.9 H Lymphocytes # 1.6 Monocytes # 0.5 Eosinophils # 0.0 Basophils # 0.0 Urine Opiates Screen Negative Ur Buprenorphine Scrn Negative Ur Barbiturates Screen Negative Ur Phencyclidine Scrn Negative Ur Amphetamines Screen Negative U Benzodiazepines Scrn Negative Urine Cocaine Screen Negative U Marijuana (THC) Screen Negative Ur Drug Screen Interp See Below Screen NEGATIVE Baby's Blood Type A RH POSITIVE Mother's Blood Type A RH NEGATIVE Rhogam Indicated YES Rhogam Req for Mother 1 09/27/18 05:03 WBC 8.8 RBC 3.28 L Hgb 9.8 L D Hct 29.6 L MCV 90.2 MCH 29.9 MCHC 33.1 RDW 15.1 H Plt Count 147 MPV 10.7 Immature Gran % 0.3 Seg Neutrophils % 74.4 Lymphocytes % 21.0 Monocytes % 4.0 Eosinophils % 0.2 Basophils % 0.1 Neutrophils # 6.5 Lymphocytes # 1.8 Monocytes # 0.4 Eosinophils # 0.0 Basophils # 0.0 Urine Opiates Screen Ur Buprenorphine Scrn Ur Barbiturates Screen Ur Phencyclidine Scrn Ur Amphetamines Screen U Benzodiazepines Scrn Urine Cocaine Screen U Marijuana (THC) Screen Ur Drug Screen Interp Screen Baby's Blood Type Mother's Blood Type Rhogam Indicated Rhogam Req for Mother Date of admission: 09/26/18 05:09 Primary care physician: PCP NONE Consults: 09/26/18 07:15 Consult to Assembly Machine Offbearer (W&C) [CONS] Stat Reason For Exam: Reason for SW Consult: history of suicide attempt during this , may 2018. history of marijuana use. 09/26/18 10:40 Consult to Assembly Machine Offbearer ([facility]&C) [CONS] Routine Reason For Exam: Reason for SW Consult: History of suicide attempt in May 2018, 40 mg of Prozac daily Discharging clinician: Ara Newberry Anticipated date of discharge: 09/28/18 - Patient Status Disposition: Home, Self-Care Condition: Good Functional capacity at discharge: independent ambulation - Discharge Instructions Follow Up With: NONE,PCP [Primary Care Provider] - Sally Brar [Partnered Physician] - - Diet and Activity Activity: increase activity as tolerated Diet: regular diet Hospital Course Procedures: [facility] report reviewed by SETH Luong Reason for admission: active labor Delivery: section Episiotomy: none Laceration: none Other procedures: tubal ligation complications: none Discharge diagnosis: IUP at term delivered baby: male (breast feeding) Time Attestation: Total time spent providing and/or coordinating discharge services: Time Spent: Less than 30 minutes - VTE Reasons for not Prescribing Prophylaxis: Treatment not Indicated - Low risk for VTE Documentation of Mechanical Device: Intermittent pneumatic compression device Exam - Constitutional Vitals: Temp Pulse Resp BP Pulse Ox 98.1 F 56 16 106/67 99 09/28/18 08:11 09/28/18 08:11 09/28/18 08:11 09/28/18 08:11 09/27/18 20:19 General appearance IM: A&O X 3, pleasant, answers questions appropriately - Respiratory Respiratory exam: Present: CTAB - Cardiovascular Cardiovascular exam IM: Present: RRR, +S1, +S2 - GI/Abdominal GI/Abdominal exam IM: normal bowel sounds Incision: normal, dry, intact - Uterine Tone: Firm Uterus Position: 3 Fingers Below Umbilicus, Midline - Extremities Exam Extremities exam IM: Present: full ROM, normal capillary refill, normal inspection - Neurological Exam Neurological exam: alert, oriented X3, reflexes normal
[2018-09-28] MEDS ORDERED: Rho Immune Globulin 1,500 UNIT SYRINGE IM ONE (09:25)
[2018-09-28] MEDS: Prenatal Vit/FA 1 EACH TABLET PO SCH (09:26)
[2018-09-28] MEDS: Simethicone 80 MG TAB.CHEW PO SCH (09:26)
[2018-09-28] MEDS: FLUoxetine 20 MG CAPSULE PO SCH (09:26)
[2018-09-28] MEDS ORDERED: Lanolin 7 G OINT...G. TP PRN (09:29)
== END 2018-09-28 15:08 | disposition home or self-care (01) | DRG 540 ==
LOC: 1NENULAB → 1NENUOBS 10:02
PROVIDERS: ADMIT Advanced Practice Midwife; ATTEND Advanced Practice Midwife